=== PATIENT | female | born 1995 | race African-American/Black ===

== ENCOUNTER 2016-11-17 19:17 | Emergency (ER) | payer OTHER ==
[~2016-11-17] VITALS: Ht 157.5 cm; Wt 78.5 kg
[2016-11-17 19:20] VITALS: TEMP 37; Ht 157.5 cm; Wt 78.5 kg
[2016-11-17 20:54] LABS: BASO % 0.1 %; BASO ABS # 0.01 K/uL (0-0.2); HEMATOCRIT 34.2 % (37-47); IG% 0.1 %; LYMPH % 36.2 %; LYMPH ABS # 2.76 K/uL (1.2-3.4); MEAN CORPUSCULAR HGB CONC 32.5 g/dl (32-36); MEAN PLATELET VOLUME 10.1 fL (7.4-10.4); MONO % 9.7 %; NEUT % 52.9 %; PLATELET COUNT 255 K/uL (130-400); RED BLOOD COUNT 4.62 M/uL (4.2-5.4); WHITE BLOOD COUNT 7.63 K/uL (4.8-10.8)
--- NOTE | 2016-11-17 21:01 | EMERGENCY ROOM VISIT NOTE ---
History Report prepared by Steffanie: Griffin Goodman Under the Supervision of: Dr. Maria D Edouard M.D. First contact with patient: 20:35 Chief Complaint: CHEST PAIN Stated Complaint: CHEST PAIN WHEN INHALING History of Present Illness The patient is a 21 year old female who presents to the Emergency Room with complaints of constant chest pain beginning this morning. The patient states that her chest pain is only present upon inhalation. She reports that she used her asthma inhaler this morning, but it did not help. The patient notes that she has not taken any other medication. She denies fevers, coughs, and wheezing. The patient states she has a history of asthma, but it has been under control. She notes that she had bronchitis twice this year for the first time. The patient reports that there is no chance she is , and she currently takes a control pill. She denies any family history of blood clots and does not smoke. Source of History: patient Onset: this morning Position: chest Timing: constant Associated Symptoms: No fevers, No cough Note: Denies: wheezing Review of Systems See HPI for pertinent positives & negatives. A total of 10 systems reviewed and were otherwise negative. Past Medical & Surgical Medical Problems: (1) Asthma (2) Bronchitis Family History Hypertension Social History Smoking Status: Never Smoker Smokeless Tobacco Use: No Alcohol Use: occasionally Marital Status: single Occupation Status: employed Current/Historical Medications Scheduled Control Pills ( Control Pills), 1 TAB PO DAILY Fexofenadine Hcl (La Allergy), 180 MG PO DAILY Fluticasone Propionate (Nasal) (Flonase Allergy Relief), 2 SPRAYS DUSTIN DAILY Scheduled PRN Albuterol (Ventolin Hfa), 2 PUFFS INH Q4H PRN for SOB/Wheezing Allergies Coded Allergies: No Known Allergies (Unverified , 11/17/16) Physical Exam Vital Signs Date Time Temp Pulse Resp B/P (MAP) Pulse Ox O2 Delivery O2 Flow Rate FiO2 11/17/16 22:18 68 18 132/80 98 Room Air 11/17/16 21:12 78 18 116/68 100 Room Air 11/17/16 20:45 90 18 95 Room Air 11/17/16 20:27 78 11/17/16 19:22 100 Room Air 11/17/16 19:20 37.0 80 18 145/80 100 Room Air Physical Exam Vital signs reviewed. General: Well-appearing, in no significant distress. HEENT: No scleral icterus, PERRLA, neck supple. Atraumatic. Cardiovascular: Regular rate and rhythm, no extra sounds. Pulmonary: Clear to auscultation bilaterally, normal work of breathing. Abdomen: Soft, nontender, nondistended, positive bowel sounds. Musculoskeletal: Atraumatic, no peripheral edema. Neurologic: Patient awake alert and oriented x 3, full strength in all 4 extremities. Cranial nerves 2 through 12 grossly intact. Skin: Warm, dry, no rash Medical Decision & Procedures ER Provider Diagnostic Interpretation: Radiology results as stated below per my review and radiologist interpretation: CHEST ONE VIEW PORTABLE CLINICAL HISTORY: Chest pain dyspnea COMPARISON STUDY: No previous studies for comparison. FINDINGS: The bones soft tissues and hemidiaphragms are normal. The cardiomediastinal silhouette is normal. The lungs are clear. The pulmonary vasculature is normal. IMPRESSION: Negative chest. Electronically signed by: Ja Castle M.D. 11/17/2016 8:58 PM Dictated Date/Time: 11/17/2016 8:57 PM CHEST CTA for PULMONARY ARTERIES CT DOSE: 253.49 mGy.cm HISTORY: Chest pain dyspnea TECHNIQUE: Multiaxial CT images of the chest were performed following the intravenous administration of contrast to evaluate the pulmonary arteries. Maximal intensity projection images were also obtained. COMPARISON STUDY: None. FINDINGS: There is a normal caliber thoracic aorta with no evidence for dissection. There is no evidence for pulmonary embolus. No pleural effusions. No pneumothorax. The liver and spleen are unremarkable. No mediastinal or hilar lymphadenopathy. The central airways are patent. The lungs are clear. IMPRESSION: No evidence for pulmonary embolus. Electronically signed by: aJ Castle M.D. 11/17/2016 9:58 PM Dictated Date/Time: 11/17/2016 9:57 PM Laboratory Results 11/17/16 20:25 Red Blood Count 4.62, Mean Corpuscular Volume 74.0, Mean Corpuscular Hemoglobin 24.0, Mean Corpuscular Hemoglobin Concent 32.5, Mean Platelet Volume 10.1, Neutrophils (%) (Auto) 52.9, Lymphocytes (%) (Auto) 36.2, Monocytes (%) (Auto) 9.7, Eosinophils (%) (Auto) 1.0, Basophils (%) (Auto) 0.1, Neutrophils # (Auto) 4.03, Lymphocytes # (Auto) 2.76, Monocytes # (Auto) 0.74, Eosinophils # (Auto) 0.08, Basophils # (Auto) 0.01 11/17/16 20:25 Test 11/17/16 20:25 11/17/16 20:54 White Blood Count 7.63 K/uL (4.8-10.8) Red Blood Count 4.62 M/uL (4.2-5.4) Hemoglobin 11.1 g/dL (12.0-16.0) Hematocrit 34.2 % (37-47) Mean Corpuscular Volume 74.0 fL (80-100) Mean Corpuscular Hemoglobin 24.0 pg (25-34) Mean Corpuscular Hemoglobin Concent 32.5 g/dl (32-36) Platelet Count 255 K/uL (130-400) Mean Platelet Volume 10.1 fL (7.4-10.4) Neutrophils (%) (Auto) 52.9 % Lymphocytes (%) (Auto) 36.2 % Monocytes (%) (Auto) 9.7 % Eosinophils (%) (Auto) 1.0 % Basophils (%) (Auto) 0.1 % Neutrophils # (Auto) 4.03 K/uL (1.4-6.5) Lymphocytes # (Auto) 2.76 K/uL (1.2-3.4) Monocytes # (Auto) 0.74 K/uL (0.11-0.59) Eosinophils # (Auto) 0.08 K/uL (0-0.5) Basophils # (Auto) 0.01 K/uL (0-0.2) RDW Standard Deviation 37.3 fL (36.4-46.3) RDW Coefficient of Variation 13.8 % (11.5-14.5) Immature Granulocyte % (Auto) 0.1 % Immature Granulocyte # (Auto) 0.01 K/uL (0.00-0.02) Anisocytosis PRESENT Microcytosis PRESENT Anion Gap 6.0 mmol/L (3-11) Est Creatinine Clear Calc Drug Dose 117.9 ml/min Estimated GFR () 136.8 Estimated GFR (Non- 118.0 BUN/Creatinine Ratio 14.1 (10-20) Calcium Level 8.3 mg/dl (8.5-10.1) Total Bilirubin 0.2 mg/dl (0.2-1) Direct Bilirubin < 0.1 mg/dl (0-0.2) Aspartate Amino Transf (AST/SGOT) 13 U/L (15-37) Alanine Aminotransferase (ALT/SGPT) 23 U/L (12-78) Alkaline Phosphatase 56 U/L (45-117) Total Protein 7.6 gm/dl (6.4-8.2) Albumin 3.5 gm/dl (3.4-5.0) Bedside D-Dimer > 450 ng/mlFEU (0-450) Bedside Troponin I < 0.030 ng/ml (0-0.045) Laboratory results per my review. Medications Administered Medications (Trade) Dose Ordered Sig/Devin Route Start Time Stop Time Status Last Admin Dose Admin Ketorolac Tromethamine (Toradol Inj) 30 mg NOW STAT IV 11/17/16 22:04 11/17/16 22:05 DC 11/17/16 22:15 30 MG ECG Indication: chest pain Rate (beats per minute): 71 Rhythm: normal sinus Findings: no acute ischemic change, no ectopy ED Course 2044: Past medical records reviewed. The patient was evaluated in room A03. A complete history and physical examination was performed. 2203: Ordered Toradol Inj 30mg IV 2214: Upon reevaluation, the patient appeared to have improvement of her symptoms. I discussed findings with her. She verbalized agreement of the treatment plan. The patient was discharged home. Medical Decision DDx: Acute coronary syndrome, pulmonary embolus, aortic dissection, musculoskeletal pain, pneumonia, pleural effusion, pneumothorax This pt was evaluated and appeared to be in no distress. IV access was obtained and lab work was drawn. Pt was placed on the quality assurance monitor. Lab work reveals no acute cardiac ischemia. Ddimer is elevated. CT chest is negative for PE. EKG reveals no evidence of ischemia or ectopy. Pt was given IV toradol. She was advised of the findings. Pt will use ibuprofen as needed for pain with food. She will f/u with PCP this week if symptoms continue. Pt will return to the ED for worsening of symptoms or any medical concerns. Impression Primary Impression: Pleuritic chest pain Scribe Attestation The scribe's documentation has been prepared under my direction and personally reviewed by me in its entirety. I confirm that the note above accurately reflects all work, treatment, procedures, and medical decision making performed by me. Departure Information Dispostion Home / Self-Care Referrals No Doctor, Assigned (PCP) Forms HOME CARE DOCUMENTATION FORM, IMPORTANT VISIT INFORMATION Patient Instructions My [facility] Additional Instructions Diagnosis: Pleuritic chest pain Ibuprofen 600 mg every 6 hours as needed for pain with food. Drink plenty of clear fluids. Follow-up with your physician or [facility] for reevaluation this week. Return to the ER for worsening of symptoms or any medical concerns.
[2016-11-17 21:02] LABS: ALT/SGPT 23 U/L (12-78); AST/SGOT 13 U/L (15-37); BLOOD UREA NITROGEN 10 mg/dl (7-18); BUN/CREATININE RATIO 14.1 (10-20); CALCIUM 8.3 mg/dl (8.5-10.1); CARBON DIOXIDE 26 mmol/L (21-32); CHLORIDE 109 mmol/L (98-107); CREATININE 0.72 mg/dl (0.60-1.20); GLUCOSE 69 mg/dl (70-99); POTASSIUM 3.5 mmol/L (3.5-5.1); SODIUM 141 mmol/L (136-145)
[2016-11-17 21:05] LABS: ALKALINE PHOSPHATASE 56 U/L (45-117)
[2016-11-17 21:14] LABS: POINT OF CARE TROPONIN I < 0.030 ng/ml (0-0.045)
[2016-11-17 21:29] LABS: ANISOCYTOSIS PRESENT; COMPLETE YES
[2016-11-17] MEDS ORDERED: OPTIRAY 320 IV PRN (21:45)
--- NOTE | 2016-11-17 21:59 | DIAGNOSTIC IMAGING REPORT ---
CHEST CTA for PULMONARY ARTERIES CT DOSE: 253.49 mGy.cm HISTORY: Chest pain dyspnea TECHNIQUE: Multiaxial CT images of the chest were performed following the intravenous administration of contrast to evaluate the pulmonary arteries. Maximal intensity projection images were also obtained. COMPARISON STUDY: None. FINDINGS: There is a normal caliber thoracic aorta with no evidence for dissection. There is no evidence for pulmonary embolus. No pleural effusions. No pneumothorax. The liver and spleen are unremarkable. No mediastinal or hilar lymphadenopathy. The central airways are patent. The lungs are clear. IMPRESSION: No evidence for pulmonary embolus. Electronically signed by: Ja Castle M.D. 11/17/2016 9:58 PM Dictated Date/Time: 11/17/2016 9:57 PM
[2016-11-17] MEDS ORDERED: KETOROLAC TROMETHAMINE 30 MG/ML VIAL IV STA (22:04)
[2016-11-17] MEDS ORDERED: BCPILLS PO (22:10)
[2016-11-17] MEDS ORDERED: PRVHFAIN INH (22:10)
[2016-11-17] MEDS ORDERED: FEXO1TAB49 PO (22:10)
[2016-11-17] MEDS ORDERED: FLUT0.15 NAE (22:10)
[2016-11-17 22:18] VITALS: BP 132/80; PULSE 68; O2SAT 98
[2016-11-18 07:07] LABS: MICROCYTOSIS PRESENT
== END 2016-11-17 22:26 | disposition home or self-care (01) ==
LOC: C.EDB 19:19 → C.EDA 22:26
DX: R07.81 Pleurodynia (principal); J45.909 Unspecified asthma, uncomplicated